=== PATIENT | female | born 1970 | race Caucasian/White ===

== ENCOUNTER 2025-04-17 07:38 | Outpatient (CLI) | payer OTHER | END 2025-04-17 07:39 | disposition home or self-care (01) | LOC: SCSMRI 07:38 | PROVIDERS: ATTEND Family Medicine | DX: D21.11 Benign neoplasm of connective and other soft tissue of right upper limb, including shoulder (principal); S56.511A Strain of other extensor muscle, fascia and tendon at forearm level, right arm, initial encounter ==